=== PATIENT | male | born 1990 | race Two or more races ===

== ENCOUNTER 2023-11-01 12:51 | Emergency (ER) | payer SELFPAY ==
[~2023-11-01] VITALS: Ht 177.8 cm; Wt 117.0 kg
[2023-11-01 13:45] VITALS: TEMP 98.4; O2SAT 99
[2023-11-01] MEDS: KETOROLAC 60MG/2ML VIAL IM NR ×2 (15:40→17:45)
[2023-11-01] MEDS ORDERED: HYDR-4001 MT (15:54)
[2023-11-01] MEDS ORDERED: NAPR-681 PO (15:54)
[2023-11-01 17:45] VITALS: BP 147/68; PULSE 56; RESP 20
== END 2023-11-02 06:46 | disposition home or self-care (01) ==
LOC: ER 12:51
DX: M77.32 Calcaneal spur, left foot (principal)
CPT/HCPCS: 99283; 73610; 96372; J1885